=== PATIENT | female | born 1960 | race Caucasian/White ===

== ENCOUNTER → 2016-11-29 | Outpatient (CLI) | payer MEDICAID | END | disposition home or self-care (01) | LOC: ROC 11-21 09:29 | PROVIDERS: ATTEND Radiology Radiation Oncology | DX: C34.11 Malignant neoplasm of upper lobe, right bronchus or lung (principal); Z82.49 Family history of ischemic heart disease and other diseases of the circulatory system; Z88.8 Allergy status to other drugs, medicaments and biological substances | CPT/HCPCS: 99214; G0463 ==

== ENCOUNTER → 2018-06-01 | Outpatient (CLI) | payer MEDICAID | END | disposition home or self-care (01) | LOC: ROC 07:07 | PROVIDERS: ATTEND Radiology Radiation Oncology | DX: C34.11 Malignant neoplasm of upper lobe, right bronchus or lung (principal); I10 Essential (primary) hypertension; Z90.49 Acquired absence of other specified parts of digestive tract; Z87.891 Personal history of nicotine dependence | CPT/HCPCS: 99213; G0463 ==

== ENCOUNTER → 2018-07-25 | Outpatient (CLI) | payer MEDICAID | END | disposition home or self-care (01) | LOC: ROC 07:26 | PROVIDERS: ATTEND Radiology Radiation Oncology | DX: C34.90 Malignant neoplasm of unspecified part of unspecified bronchus or lung (principal) | CPT/HCPCS: 99213; G0463 ==

== ENCOUNTER 2018-09-28 07:15 | Outpatient (CLI) | payer MEDICAID | END 2018-09-28 23:59 | disposition home or self-care (01) | LOC: ROC 07:15 | PROVIDERS: ATTEND Radiology Radiation Oncology | DX: C34.90 Malignant neoplasm of unspecified part of unspecified bronchus or lung (principal) | CPT/HCPCS: 99212; G0463 ==

== ENCOUNTER 2019-05-21 22:34 | Inpatient (IN) | payer MEDICARE, MEDICAID ==
[~2019-05-21] VITALS: Ht 152.4 cm; Wt 76.3 kg
[~2019-05-21 22:34] MED LIST: LISI-167 PO
[2019-05-21] MEDS ORDERED: ACET325C6 PO (22:58)
[2019-05-21] MEDS ORDERED: CLON0.1T2 PO (22:59)
--- NOTE | 2019-05-21 23:03 | NUR ---
Pt presents as transfer from [facility] for nose bleed and bloody stools (x3 episodes) since this AM. Pt is on chemo for small cell lung cancer. Pt has port to left chest. 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 Dried blood noted to nares and rhino rocket in place in left nare. Pt on room air. Pt did receive 20 of potassium STICKER MACHINE OPERATOR. Pt reports she took tylenol earlier today. Pt ambulatory to and from restroom. Pt in gown and on pulse ox. Call light within reach.
--- NOTE | 2019-05-21 23:21 | NUR ---
Lab at bedside for draw. Reverse contact iso in place.
--- NOTE | 2019-05-21 23:32 | NUR ---
Pt given water and crackers - okay per MD. Consent for platelets in chart. Pt aware of need for urine sample.
[2019-05-22] VITALS (11 sets, daily range): BP systolic 111–146; BP diastolic 71–92
[2019-05-22 00:09] LABS: MEAN CORPUSCULAR HGB CONC 34.6 g/dL (32.4-35.8); MEAN CORPUSCULAR VOLUME 95.5 fL (80-100); MEAN PLATELET VOLUME 8.7 fL (7.4-10.4); RED CELL DISTRIBUTION WIDTH 16.3 % (9.6-15.2)
[2019-05-22 00:12] LABS: PLATELET COUNT 5 x10^3/uL (130-400)
--- NOTE | 2019-05-22 00:13 | NUR ---
Pt ambulatory to and from restroom. Pt reports an episode of black stools. Pt unable to collected urine for sample. Pt returned to [facility]. VS retaken. Call light in place.
[2019-05-22 00:18] LABS: MD YES
[2019-05-22 00:29] LABS: <RBC MORPHOLOGY> NORMAL; BAND#(MANUAL) 0.01 x10^3/uL; BANDS%(MANUAL) 1 % (0-7); LARGE PLATELETS 1+; LYMPH#(MANUAL) 0.74 x10^3/uL (1-3.4); LYMPHS% (MANUAL) 82 % (22-44); MONOS#(MANUAL) 0.01 x10^3/uL (0.3-2.7); MONOS% (MANUAL) 1 % (2-9); REACTIVE LYMPHS # (MANUAL) 0.11 x10^3/uL (0-0); REACTIVE LYMPHS % (MANUAL) 12 % (0-0); SEG#(MANUAL) 0.04 x10^3/uL (1.8-6.8); SEGS% (MANUAL) 4 % (42-75)
[2019-05-22 00:30] LABS: <PLATELET ESTIMATE> DECREASED
[2019-05-22] MEDS ORDERED: ACETAMINOPHEN 500 MG TABLET ONE (00:42)
--- NOTE | 2019-05-22 00:43 | NUR ---
Pharmacy request sent for protonix drip.
--- NOTE | 2019-05-22 00:46 | NUR ---
BREAK RN FOR PRIMARY RN PIPER. PT MEDICATED NOTED PER MD ORDER FOR 08/23 JACKSON PAIN "I SUFFER FROM MIGRAINES SO ANY TIME I START A HEADACHE COMING ON I NEED TYLENOL." VSS. CALL LIGHT IN REACH. FALL PRECAUTIONS IN PLACE. PROVIDED WARM BLANKET FOR COMFORT. AWAITING PROTONIX FROM PHARMACY. DR. SOLARES AT BEDSIDE DISCUSSING POC AND ANTIBIOTIC ORDERS WITH PT CONCERNS WITH HER ALLERGIES.
--- NOTE | 2019-05-22 00:46 | NUR ---
DISCUSSED TYLENOL LISTED ALLERGY WITH PT, PT STATES "NO I CAN'T TAKE VICODIN OR HYDROCODONE OR MEDS LIKE THAT OR IBUPROFEN, THE ONLY THING I CAN TAKE IS TYLENOL, I'M NOT ALLERGIC TO TYLENOL." DISCUSSED WITH DR. SOLARES, AWARE, REMAINS AT BEDSIDE, SPEAKING WITH PT
[2019-05-22] MEDS ORDERED: PANTOPRAZOLE 80 MG in SODIUM CHLORIDE 0.9% 50 ML IV ONE (01:00)
[2019-05-22] MEDS ORDERED: ACETAMINOPHEN 500 MG TABLET PO ONE (01:00)
[2019-05-22] MEDS ORDERED: VANCOMYCIN PER PHARMACY MC PRN (01:00)
[2019-05-22] MEDS ORDERED: CEFEPIME 2 GM in DEXTROSE 5% 100 ML IV ONE (01:00)
--- NOTE | 2019-05-22 01:13 | NUR ---
PT REFUSES VANCOMYCIN ANTIBIOTIC "OH NO I CANNOT TAKE THAT IT CLOSES OFF MY THROAT AND GIVES ME HIVES, I'M VERY UNSURE OF TAKING THAT OTHER ANTIBIOTIC WELL WITH ALL MY ALLERGIES TO ANTIBIOTICS, AND YOU KNOW I'M ALLERGIC TO PEPCID AND PRILOSEC SO I DON'T THINK THAT THE PROTONIX WILL BE GOOD FOR ME EITHER." DISCUSSED WITH DR. SOLARES AWARE PT REFUSING MEDICATIONS. TO DISCUSS FURTHER WITH PT.
--- NOTE | 2019-05-22 01:14 | NUR ---
ADMITTING PROVIDER AT BEDSIDE FOR EVALUATION
--- NOTE | 2019-05-22 01:23 | NUR ---
BEDSIDE REPORT AND CARE BACK TO PRIMARY HITESH SALDAÑA AT THIS TIME. DR. SOLARES AT BEDSIDE, DISCUSSED PROTONIX WITH PT, PT AGREES TO TAKE MEDICATION. WILL MONITOR PT FOR ANY S/S OF REACTION. VSS. CALL LIGHT IN REACH.
--- NOTE | 2019-05-22 01:32 | NUR ---
Along with Danitza RN pt educated on benefits and purpose of protonix. Pt agreeable to protonix. Protonix started. Pt remains on pulse ox/HR monitor with call light at bedside. Lights dimmed for comfort.
--- NOTE | 2019-05-22 01:33 | NUR ---
Cefepime held at this time d/t pt refusal. aware.
--- NOTE | 2019-05-22 01:40 | NUR ---
Report given to HITESH Combs
--- NOTE | 2019-05-22 01:43 | NUR ---
No S/Sx of reaction to protonix noted. Pt 96% RA. Pt denies complaints. technology instructor at bedside for transpot. Pt updated.
--- NOTE | 2019-05-22 01:52 | NUR ---
Pt transferred to floor. Pt alert, oriented and in NAD.
[2019-05-22] MEDS: SODIUM CHLORIDE 0.9% 1,000 ML IV SCH ×2 (02:11→09:09)
[2019-05-22] MEDS: PANTOPRAZOLE 80 MG in SODIUM CHLORIDE 0.9% 100 ML IV SCH ×3 (02:12→21:57)
[2019-05-22 06:26] LABS: MICROSCOPIC NOT IND
[2019-05-22 06:28] LABS: CULTURE INDICATED? NO
[2019-05-22 07:27] LABS: MEAN CORPUSCULAR HEMOGLOBIN 33.8 pg (27.0-34.8); MEAN CORPUSCULAR HGB CONC 35.2 g/dL (32.4-35.8); MEAN CORPUSCULAR VOLUME 95.9 fL (80-100); MEAN PLATELET VOLUME 8.5 fL (7.4-10.4); RED BLOOD COUNT 3.46 x10^6/uL (3.82-5.3); RED CELL DISTRIBUTION WIDTH 15.9 % (9.6-15.2)
[2019-05-22 07:31] LABS: PLATELET COUNT 5 x10^3/uL (130-400)
[2019-05-22 07:33] LABS: MD YES
[2019-05-22 07:34] LABS: BAND#(MANUAL) 0.01 x10^3/uL; BANDS%(MANUAL) 1 % (0-7); EOS#(MANUAL) 0.02 x10^3/uL (0.0-0.4); EOS% (MANUAL) 2 % (1-7); LYMPH#(MANUAL) 0.73 x10^3/uL (1-3.4); LYMPHS% (MANUAL) 81 % (22-44); MONOS#(MANUAL) 0.05 x10^3/uL (0.3-2.7); MONOS% (MANUAL) 5 % (2-9); REACTIVE LYMPHS # (MANUAL) 0.02 x10^3/uL (0-0); REACTIVE LYMPHS % (MANUAL) 2 % (0-0); SEG#(MANUAL) 0.08 x10^3/uL (1.8-6.8); SEGS% (MANUAL) 9 % (42-75)
[2019-05-22 07:35] LABS: <PLATELET ESTIMATE> DECREASED; <PLT MORPHOLOGY> QNS FOR PLT MORPH; <RBC MORPHOLOGY> NORMAL
[2019-05-22] MEDS ORDERED: DIPHENHYDRAMINE 25 MG CAPSULE PO ONE ×2 (08:30→16:30)
[2019-05-22] MEDS: CEFEPIME 2 GM in DEXTROSE 5% 100 ML IV SCH ×2 (09:09→17:23)
[2019-05-22] MEDS: ACETAMINOPHEN 325 MG TABLET PO PRN ×2 (09:09→17:13)
[2019-05-22 10:29] LABS: CLOSTRIDIUM DIFFICILE ANTIGEN NEGATIVE; CLOSTRIDIUM DIFFICILE TOXIN NEGATIVE (Negative)
[2019-05-22 15:42] LABS: MEAN CORPUSCULAR HEMOGLOBIN 33.4 pg (27.0-34.8); MEAN CORPUSCULAR VOLUME 95.4 fL (80-100); MEAN PLATELET VOLUME 7.9 fL (7.4-10.4); RED BLOOD COUNT 3.29 x10^6/uL (3.82-5.3); RED CELL DISTRIBUTION WIDTH 15.6 % (9.6-15.2)
[2019-05-22] MEDS ORDERED: TBO-FILGRASTIM 300 MCG/0.5 ML SQ SCH ×2 (16:00→16:29)
[2019-05-22 16:02] LABS: PLATELET COUNT 8 x10^3/uL (130-400)
[2019-05-22 16:57] LABS: MD YES
[2019-05-22 17:07] LABS: BAND#(MANUAL) 0.04 x10^3/uL; BANDS%(MANUAL) 6 % (0-7); LYMPH#(MANUAL) 0.48 x10^3/uL (1-3.4); LYMPHS% (MANUAL) 69 % (22-44); MONOS#(MANUAL) 0.03 x10^3/uL (0.3-2.7); MONOS% (MANUAL) 4 % (2-9); SEG#(MANUAL) 0.15 x10^3/uL (1.8-6.8); SEGS% (MANUAL) 21 % (42-75)
[2019-05-22 17:08] LABS: <PLATELET ESTIMATE> DECREASED; <PLT MORPHOLOGY> QNS FOR PLT MORPH; <RBC MORPHOLOGY> NORMAL
[2019-05-22] MEDS: TBO-FILGRASTIM 300 MCG/0.5 ML SQ SCH (17:23)
[2019-05-23] VITALS (10 sets, daily range): BP systolic 117–135; BP diastolic 74–90
[2019-05-23] MEDS: SODIUM CHLORIDE 0.9% 1,000 ML IV SCH ×3 (00:01→21:16)
[2019-05-23] MEDS: CEFEPIME 2 GM in DEXTROSE 5% 100 ML IV SCH ×3 (02:01→18:15)
[2019-05-23] MEDS: ACETAMINOPHEN 325 MG TABLET PO PRN ×4 (02:25→20:18)
[2019-05-23 05:22] LABS: ANION GAP 7 mmol/L (5-15); CHLORIDE 107 mmol/L (98-107); CREATININE 0.88 mg/dL (0.55-1.02)
[2019-05-23 06:29] LABS: MEAN CORPUSCULAR HEMOGLOBIN 33.6 pg (27.0-34.8); MEAN CORPUSCULAR HGB CONC 35.2 g/dL (32.4-35.8); MEAN CORPUSCULAR VOLUME 95.4 fL (80-100); MEAN PLATELET VOLUME 8.9 fL (7.4-10.4); RED BLOOD COUNT 2.85 x10^6/uL (3.82-5.3); RED CELL DISTRIBUTION WIDTH 15.7 % (9.6-15.2)
[2019-05-23 06:30] LABS: PLATELET COUNT 5 x10^3/uL (130-400)
[2019-05-23 06:41] LABS: MD YES
[2019-05-23 06:42] LABS: <PLATELET ESTIMATE> DECREASED; <PLT MORPHOLOGY> QNS FOR PLT MORPH; <RBC MORPHOLOGY> NORMAL; EOS#(MANUAL) 0.03 x10^3/uL (0.0-0.4); EOS% (MANUAL) 2 % (1-7); LYMPH#(MANUAL) 0.83 x10^3/uL (1-3.4); LYMPHS% (MANUAL) 64 % (22-44); MONOS#(MANUAL) 0.03 x10^3/uL (0.3-2.7); MONOS% (MANUAL) 2 % (2-9); SEG#(MANUAL) 0.42 x10^3/uL (1.8-6.8); SEGS% (MANUAL) 32 % (42-75)
[2019-05-23] MEDS ORDERED: DIPHENHYDRAMINE 25 MG CAPSULE PO ONE ×2 (07:00→17:00)
[2019-05-23] MEDS: TBO-FILGRASTIM 300 MCG/0.5 ML SQ SCH (08:05)
[2019-05-23] MEDS ORDERED: TBO-FILGRASTIM 300 MCG/0.5 ML SQ SCH (09:00)
[2019-05-23] MEDS: POTASSIUM CHLORIDE 20 MEQ TAB.ER.PRT PO SCH ×2 (09:51→17:21)
[2019-05-23] MEDS ORDERED: POTASSIUM CHLORIDE 20 MEQ in SODIUM CHLORIDE 0.9% 250 ML IV ONE (10:00)
[2019-05-23] MEDS ORDERED: POTASSIUM PHOSPHATE 22 MEQ in SODIUM CHLORIDE 0.9% 250 ML IV ONE (11:00)
[2019-05-23] MEDS ORDERED: MAGNESIUM SULFATE PMX 4GM/100M 100 ML IV ONE (11:00)
[2019-05-23 19:33] LABS: MEAN CORPUSCULAR HEMOGLOBIN 33.3 pg (27.0-34.8); MEAN CORPUSCULAR HGB CONC 35.2 g/dL (32.4-35.8); MEAN CORPUSCULAR VOLUME 94.6 fL (80-100); RED BLOOD COUNT 2.88 x10^6/uL (3.82-5.3); RED CELL DISTRIBUTION WIDTH 15.8 % (9.6-15.2)
[2019-05-23 19:36] LABS: PLATELET COUNT 5 x10^3/uL (130-400)
[2019-05-23 19:53] LABS: MD YES
[2019-05-23 20:03] LABS: BAND#(MANUAL) 0.17 x10^3/uL; BANDS%(MANUAL) 12 % (0-7); EOS#(MANUAL) 0.04 x10^3/uL (0.0-0.4); EOS% (MANUAL) 3 % (1-7); LYMPH#(MANUAL) 0.57 x10^3/uL (1-3.4); LYMPHS% (MANUAL) 41 % (22-44); MONOS#(MANUAL) 0.08 x10^3/uL (0.3-2.7); MONOS% (MANUAL) 6 % (2-9); SEG#(MANUAL) 0.53 x10^3/uL (1.8-6.8); SEGS% (MANUAL) 38 % (42-75)
[2019-05-23 20:04] LABS: <RBC MORPHOLOGY> NORMAL
[2019-05-23 20:05] LABS: <PLATELET ESTIMATE> DECREASED; <PLT MORPHOLOGY> QNS FOR PLT MORPH
[2019-05-23 20:06] LABS: MEAN PLATELET VOLUME 9.1 fL (7.4-10.4)
[2019-05-23 20:49] LABS: RED BLOOD COUNT 2.74 x10^6/uL (3.82-5.3)
[2019-05-23 20:59] LABS: ALANINE AMINOTRANSFERASE 15 U/L (12-78); ALBUMIN 2.6 g/dL (3.4-5.0); ANION GAP 6 mmol/L (5-15); CALCIUM 8.1 mg/dL (8.5-10.1); CHLORIDE 111 mmol/L (98-107); CREATININE 0.91 mg/dL (0.55-1.02)
[2019-05-23 21:01] LABS: ALKALINE PHOSPHATASE 70 U/L (45-117); BILIRUBIN,TOTAL 0.5 mg/dL (0.2-1.0); INTERNATIONAL NORMALIZED RATIO 0.97 (0.93-1.1); PROTHROMBIN TIME 10.3 Seconds (9.6-11.5); TOTAL PROTEIN 6.4 g/dL (6.4-8.2)
[2019-05-23 21:02] LABS: ABSOLUTE RETICS # 0.004 x10^6/uL (0.5-2.5); RETICULOCYTE COUNT % 0.13 % (0.5-1.5)
[2019-05-24 01:03] VITALS: BP 107/71
[2019-05-24] MEDS: CEFEPIME 2 GM in DEXTROSE 5% 100 ML IV SCH ×3 (02:07→17:45)
[2019-05-24] MEDS: SODIUM CHLORIDE 0.9% 1,000 ML IV SCH ×3 (05:08→22:43)
[2019-05-24 06:19] LABS: MEAN CORPUSCULAR HEMOGLOBIN 33.3 pg (27.0-34.8); MEAN CORPUSCULAR HGB CONC 34.9 g/dL (32.4-35.8); MEAN CORPUSCULAR VOLUME 95.5 fL (80-100); RED BLOOD COUNT 2.92 x10^6/uL (3.82-5.3); RED CELL DISTRIBUTION WIDTH 15.5 % (9.6-15.2)
[2019-05-24 06:21] LABS: ANION GAP 8 mmol/L (5-15); CALCIUM 8.1 mg/dL (8.5-10.1); CHLORIDE 114 mmol/L (98-107)
[2019-05-24 06:36] LABS: MD YES
[2019-05-24 06:37] LABS: MEAN PLATELET VOLUME 8.9 fL (7.4-10.4)
[2019-05-24 06:38] LABS: PLATELET COUNT 9 x10^3/uL (130-400)
[2019-05-24 06:40] LABS: BAND#(MANUAL) 0.22 x10^3/uL; BANDS%(MANUAL) 9 % (0-7); LYMPH#(MANUAL) 0.62 x10^3/uL (1-3.4); LYMPHS% (MANUAL) 26 % (22-44); METAMYELOCYTES# (MANUAL) 0.02 x10^3/uL (0-0); METAMYELOCYTES% (MANUAL) 1 % (0-1); MONOS#(MANUAL) 0.19 x10^3/uL (0.3-2.7); MONOS% (MANUAL) 8 % (2-9); SEG#(MANUAL) 1.34 x10^3/uL (1.8-6.8); SEGS% (MANUAL) 56 % (42-75)
[2019-05-24 06:41] LABS: <PLATELET ESTIMATE> DECREASED; <PLT MORPHOLOGY> QNS FOR PLT MORPH; <RBC MORPHOLOGY> NORMAL; TOXIC GRAN 1+
[2019-05-24] MEDS: TBO-FILGRASTIM 300 MCG/0.5 ML SQ SCH (07:17)
[2019-05-24 07:38] VITALS: BP 120/68
[2019-05-24] MEDS ORDERED: POTASSIUM PHOSPHATE 44 MEQ in SODIUM CHLORIDE 0.9% 500 ML IV ONE (09:00)
[2019-05-24] MEDS ORDERED: MAGNESIUM SULFATE PMX 4GM/100M 100 ML IV ONE (09:00)
[2019-05-24 13:16] LABS: MEAN CORPUSCULAR HEMOGLOBIN 33.4 pg (27.0-34.8); MEAN CORPUSCULAR VOLUME 95.5 fL (80-100); RED BLOOD COUNT 3.32 x10^6/uL (3.82-5.3); RED CELL DISTRIBUTION WIDTH 15.8 % (9.6-15.2)
[2019-05-24 13:22] LABS: MD YES; MEAN PLATELET VOLUME 8.9 fL (7.4-10.4)
[2019-05-24 13:24] LABS: BAND#(MANUAL) 0.56 x10^3/uL; BANDS%(MANUAL) 13 % (0-7); EOS#(MANUAL) 0.09 x10^3/uL (0.0-0.4); EOS% (MANUAL) 2 % (1-7); METAMYELOCYTES# (MANUAL) 0.04 x10^3/uL (0-0); METAMYELOCYTES% (MANUAL) 1 % (0-1)
[2019-05-24 13:25] LABS: <PLATELET ESTIMATE> DECREASED; <PLT MORPHOLOGY> QNS FOR PLT MORPH; <RBC MORPHOLOGY> NORMAL; LYMPH#(MANUAL) 1.03 x10^3/uL (1-3.4); LYMPHS% (MANUAL) 24 % (22-44); MONOS% (MANUAL) 7 % (2-9); SEG#(MANUAL) 2.28 x10^3/uL (1.8-6.8); SEGS% (MANUAL) 53 % (42-75); TOXIC GRAN 1+
[2019-05-24 13:27] LABS: PLATELET COUNT 8 x10^3/uL (130-400)
[2019-05-24 13:59] VITALS: BP 124/84
[2019-05-24 18:34] LABS: MD YES; MEAN CORPUSCULAR HEMOGLOBIN 32.7 pg (27.0-34.8); MEAN CORPUSCULAR HGB CONC 34.4 g/dL (32.4-35.8); MEAN PLATELET VOLUME 10.4 fL (7.4-10.4); RED BLOOD COUNT 3.18 x10^6/uL (3.82-5.3); RED CELL DISTRIBUTION WIDTH 15.8 % (9.6-15.2)
[2019-05-24 18:41] LABS: PLATELET COUNT 9 x10^3/uL (130-400)
[2019-05-24 18:44] LABS: <PLATELET ESTIMATE> DECREASED; <PLT MORPHOLOGY> QNS FOR PLT MORPH; <RBC MORPHOLOGY> NORMAL; BAND#(MANUAL) 0.42 x10^3/uL; BANDS%(MANUAL) 12 % (0-7); LYMPH#(MANUAL) 0.81 x10^3/uL (1-3.4); LYMPHS% (MANUAL) 23 % (22-44); MONOS#(MANUAL) 0.18 x10^3/uL (0.3-2.7); MONOS% (MANUAL) 5 % (2-9); NRBC % (MANUAL) 1 % (0-1); SEGS% (MANUAL) 60 % (42-75)
[2019-05-24 18:48] LABS: TOXIC GRAN 1+
[2019-05-24 19:41] VITALS: BP 136/84
[2019-05-24] MEDS: ACETAMINOPHEN 325 MG TABLET PO PRN (20:05)
[2019-05-25 00:32] VITALS: BP 127/81
[2019-05-25] MEDS: CEFEPIME 2 GM in DEXTROSE 5% 100 ML IV SCH ×3 (01:33→17:04)
[2019-05-25] MEDS: ACETAMINOPHEN 325 MG TABLET PO PRN ×2 (01:38→14:23)
[2019-05-25] MEDS: SODIUM CHLORIDE 0.9% 1,000 ML IV SCH (05:18)
[2019-05-25 06:23] LABS: ANION GAP 7 mmol/L (5-15); CALCIUM 8.5 mg/dL (8.5-10.1); CHLORIDE 112 mmol/L (98-107)
[2019-05-25 06:24] LABS: CREATININE 0.76 mg/dL (0.55-1.02)
[2019-05-25 06:52] VITALS: BP 133/85
[2019-05-25 06:55] LABS: MEAN CORPUSCULAR HEMOGLOBIN 32.7 pg (27.0-34.8); MEAN CORPUSCULAR HGB CONC 34.3 g/dL (32.4-35.8); MEAN CORPUSCULAR VOLUME 95.4 fL (80-100); RED BLOOD COUNT 2.99 x10^6/uL (3.82-5.3); RED CELL DISTRIBUTION WIDTH 15.9 % (9.6-15.2)
[2019-05-25 06:57] LABS: MD YES
[2019-05-25 07:01] LABS: MEAN PLATELET VOLUME 9.4 fL (7.4-10.4)
[2019-05-25 07:03] LABS: BAND#(MANUAL) 0.22 x10^3/uL; BANDS%(MANUAL) 5 % (0-7); EOS#(MANUAL) 0.04 x10^3/uL (0.0-0.4); EOS% (MANUAL) 1 % (1-7); LYMPH#(MANUAL) 1.28 x10^3/uL (1-3.4); LYMPHS% (MANUAL) 29 % (22-44); METAMYELOCYTES# (MANUAL) 0.09 x10^3/uL (0-0); METAMYELOCYTES% (MANUAL) 2 % (0-1); MONOS#(MANUAL) 0.35 x10^3/uL (0.3-2.7); MONOS% (MANUAL) 8 % (2-9); PLATELET COUNT 14 x10^3/uL (130-400); SEG#(MANUAL) 2.42 x10^3/uL (1.8-6.8); SEGS% (MANUAL) 55 % (42-75)
[2019-05-25 07:04] LABS: <PLATELET ESTIMATE> DECREASED; <RBC MORPHOLOGY> NORMAL; TOXIC GRAN 1+
[2019-05-25 07:05] LABS: <PLT MORPHOLOGY> NORMAL PLT MORPH
[2019-05-25] MEDS: TBO-FILGRASTIM 300 MCG/0.5 ML SQ SCH (07:08)
[2019-05-25] MEDS: POTASSIUM CHLORIDE 20 MEQ TAB.ER.PRT PO SCH ×2 (09:14→17:04)
[2019-05-25 15:00] VITALS: BP 124/82
[2019-05-25 19:48] VITALS: BP 137/92
[2019-05-26 00:10] VITALS: BP 145/91
[2019-05-26] MEDS: CEFEPIME 2 GM in DEXTROSE 5% 100 ML IV SCH ×2 (02:21→08:48)
[2019-05-26 04:45] LABS: ANION GAP 7 mmol/L (5-15); CHLORIDE 112 mmol/L (98-107)
[2019-05-26 04:47] LABS: MEAN CORPUSCULAR HEMOGLOBIN 33.2 pg (27.0-34.8); MEAN CORPUSCULAR HGB CONC 34.7 g/dL (32.4-35.8); MEAN CORPUSCULAR VOLUME 95.6 fL (80-100); RED BLOOD COUNT 3.08 x10^6/uL (3.82-5.3); RED CELL DISTRIBUTION WIDTH 15.9 % (9.6-15.2)
[2019-05-26 04:48] LABS: CREATININE 0.76 mg/dL (0.55-1.02)
[2019-05-26 05:05] LABS: MD YES; MEAN PLATELET VOLUME 8.9 fL (7.4-10.4)
[2019-05-26 05:07] LABS: PLATELET COUNT 25 x10^3/uL (130-400)
[2019-05-26 05:12] LABS: <PLATELET ESTIMATE> DECREASED; <PLT MORPHOLOGY> NORMAL PLT MORPH; <RBC MORPHOLOGY> NORMAL; BAND#(MANUAL) 0.07 x10^3/uL; BANDS%(MANUAL) 2 % (0-7); LYMPHS% (MANUAL) 47 % (22-44); MONOS#(MANUAL) 0.37 x10^3/uL (0.3-2.7); MONOS% (MANUAL) 11 % (2-9); SEG#(MANUAL) 1.36 x10^3/uL (1.8-6.8); SEGS% (MANUAL) 40 % (42-75); TOXIC GRAN 1+
[2019-05-26 07:46] VITALS: BP_SYST 142; BP_SYST 150; BP_DIAS 101; BP_DIAS 103
[2019-05-26] MEDS: ACETAMINOPHEN 325 MG TABLET PO PRN ×2 (08:48)
[2019-05-26] MEDS: TBO-FILGRASTIM 300 MCG/0.5 ML SQ SCH (08:48)
[2019-05-26] MEDS ORDERED: POTASSIUM CHLORIDE 20 MEQ TAB.ER.PRT PO ONE (09:00)
[2019-05-26 14:02] VITALS: BP 137/90
== END 2019-05-26 14:05 | disposition home or self-care (01) | DRG 377 ==
LOC: ED 23:00 → EDIP 05-22 00:49 → 4NW 05-22 01:48 → 3N 05-22 15:27
PROVIDERS: ADMIT Internal Medicine; ATTEND Internal Medicine
PROC: 30233R1 Transfusion of Nonautologous Platelets into Peripheral Vein, Percutaneous Approach (ICD-10-PCS; principal; 2019-05-23)
DX: K92.1 Melena (principal); D61.810 Antineoplastic chemotherapy induced pancytopenia; C34.90 Malignant neoplasm of unspecified part of unspecified bronchus or lung; D69.6 Thrombocytopenia, unspecified; G89.29 Other chronic pain; D69.59 Other secondary thrombocytopenia; E27.8 Other specified disorders of adrenal gland; E83.39 Other disorders of phosphorus metabolism; E83.42 Hypomagnesemia; E87.6 Hypokalemia; I10 Essential (primary) hypertension; R04.0 Epistaxis; R50.81 Fever presenting with conditions classified elsewhere; T45.1X5A Adverse effect of antineoplastic and immunosuppressive drugs, initial encounter; Z79.899 Other long term (current) drug therapy; Z80.1 Family history of malignant neoplasm of trachea, bronchus and lung; Z85.118 Personal history of other malignant neoplasm of bronchus and lung; Z86.718 Personal history of other venous thrombosis and embolism; Z86.73 Personal history of transient ischemic attack (TIA), and cerebral infarction without residual deficits; Z88.1 Allergy status to other antibiotic agents; Y92.89 Other specified places as the place of occurrence of the external cause; Z88.8 Allergy status to other drugs, medicaments and biological substances; Z90.49 Acquired absence of other specified parts of digestive tract; Z87.891 Personal history of nicotine dependence
CPT/HCPCS: 36415; 71045; 80048; 80053; 81003; 83605; 83735; 84100; 85025; 85045; 85384; 85610; 85730; 86850; 86900; 87040; 87046; 87324; 87427; 89055; 96374; G0378; J3480; C9113; J1447; J3475; J7030; J7040; J7050; P9035; Q0163

== ENCOUNTER 2020-08-27 12:53 | Observation (INO) | payer MEDICARE, MEDICAID ==
[~2020-08-27] VITALS: Ht 152.4 cm; Wt 78.3 kg
[~2020-08-27 12:53] MED LIST changes: +ACET325C6 PO; +CLON0.1T2 PO
--- NOTE | 2020-08-27 12:53 | NUR ---
Report received from EMS staff, care assumed, music sound light technician already present at bedside obtaining 12 [address] don full bedside monitoring at this time. Port access assessed with dsg c/d/i and locked with cap on hub noted. Pt states mild JACKSON coming on in the last 30 minutes or so. Call light in reach, pt declined lights being dimmed, and warm blanket provided. All paperwork sent from [facility] ER reviewed by RN with noted large list of allergens present.
--- NOTE | 2020-08-27 13:24 | NUR ---
at bedside for exam.
--- NOTE | 2020-08-27 14:02 | NUR ---
Pt up for admission, awaiting lunch tray and room assignment at this time.
--- NOTE | 2020-08-27 14:25 | NUR ---
Tylenol requested from MD via note for JACKSON. Awaiting order placement. Lunch tray brought in to pt and set up by hospitalist currently at bedside for exam.
[2020-08-27] MEDS ORDERED: ACETAMINOPHEN 500 MG TABLET PO ONE (14:30)
[2020-08-27] MEDS ORDERED: ACETAMINOPHEN 500 MG TABLET ONE (14:52)
--- NOTE | 2020-08-27 14:56 | NUR ---
APA given for JACKSON at this time. Report given to HITESH Latham and care transferred.
[2020-08-27] MEDS ORDERED: ONDANSETRON 2MG/ML, 2ML IVPush PRN (15:30)
[2020-08-27] MEDS ORDERED: ONDANSETRON ODT 4 MG PO PRN (15:30)
[2020-08-27 17:37] VITALS: BP 146/86
[2020-08-27 20:32] VITALS: BP 153/91
[2020-08-27] MEDS: ACETAMINOPHEN 325 MG TABLET PO PRN (21:32)
[2020-08-28 00:45] VITALS: BP 128/80
[2020-08-28 05:32] LABS: BASOPHILS % (AUTO) 0 % (0-1); EOSINOPHILS % (AUTO) 0 % (1-7); LYMPHOCYTES % (AUTO) 14 % (22-44); MEAN CORPUSCULAR HEMOGLOBIN 32.4 pg (27.0-34.8); MEAN CORPUSCULAR HGB CONC 33.7 g/dL (32.4-35.8); MEAN PLATELET VOLUME 8.6 fL (7.4-10.4); MONOCYTES % (AUTO) 5 % (2-9); NEUTROPHILS % (AUTO) 81 % (42-75); PLATELET COUNT 178 x10^3/uL (130-400); RED BLOOD COUNT 4.55 x10^6/uL (3.82-5.3); RED CELL DISTRIBUTION WIDTH 16.1 % (9.6-15.2)
[2020-08-28 05:44] LABS: ANION GAP 4 mmol/L (5-15); CALCIUM 9.2 mg/dL (8.5-10.1); CHLORIDE 110 mmol/L (98-107); CREATININE 0.86 mg/dL (0.55-1.02)
[2020-08-28] MEDS: ACETAMINOPHEN 325 MG TABLET PO PRN (05:48)
[2020-08-28 06:38] VITALS: BP 153/94
[2020-08-28] MEDS ORDERED: AMLODIPINE 5 MG TABLET PO SCH (09:00)
[2020-08-28 10:27] VITALS: BP 151/85
[2020-08-28] MEDS ORDERED: AMLO-150 PO (13:10)
== END 2020-08-28 14:00 | disposition home or self-care (01) ==
LOC: SUATTDRO 14:06 → ED 15:02 → EDIP 15:03 → ED 15:21 → 5SO 17:17 → DCLOUNGE 08-28 13:50
PROVIDERS: ADMIT Family Medicine; ATTEND Family Medicine
DX: R00.1 Bradycardia, unspecified (principal); C34.90 Malignant neoplasm of unspecified part of unspecified bronchus or lung; I10 Essential (primary) hypertension; Z87.891 Personal history of nicotine dependence; Z79.899 Other long term (current) drug therapy
CPT/HCPCS: 36415; 80048; 83735; 85025; 93005; 99284; G0378